=== PATIENT | female | born 1955 | race Caucasian/White ===

== ENCOUNTER 2017-01-04 10:23 | Outpatient (CLI) | payer BC ==
--- NOTE | 2017-01-04 13:34 | RAD ---
CHEST 2 VIEWS: Date: 01/04/17 HISTORY: Dyspnea. COMPARISON: Chest 2 views dated 08/12/14. FINDINGS: Linear opacity in right upper lobe appears mildly increased from the comparison examination. There is a CT angiogram of the chest from 05/03/15, which does not show an intraparenchymal abnormality; ther efore, this may be an artifactual density projecting over the right upper lobe. Lungs without progressive consolidation, pneumothorax, or effusion. There is prominent mediastinal fa t. IMPRESSION: No acute intrathoracic abnormality. POS: [facility]
== END 2017-01-04 10:24 | disposition home or self-care (01) ==
LOC: RAD 10:23
PROVIDERS: ATTEND Internal Medicine Pulmonary Disease
DX: R06.00 Dyspnea, unspecified (principal)
CPT/HCPCS: 71020

== ENCOUNTER 2017-12-10 10:43 | Outpatient (CLI) | payer BC ==
--- NOTE | 2017-12-10 11:52 | RAD ---
TWO VIEWS RIGHT HIP: Date: 12-10-17 Comparison: None. History: Pain and radiculopathy. FINDINGS: There is moderate superior joint space narrowing. There is mild lateral acetabular osteophyte formati on. There is a round subchondral lucency measuring 7 mm within the lateral articular aspect of the femora l head which may represent a subchondral geoid on the basis of degenerative change. No acute osseous abnormality is noted. IMPRESSION: Degenerative joint disease with no displaced fracture or evidence of dislocation. POS: [facility]
--- NOTE | 2017-12-10 13:25 | MRI ---
MRI LUMBAR SPINE: Date: 12/10/17 COMPARISON: 02/28/06. HISTORY: Lumbar radiculopathy, low back pain with right hip and right groin pain. TECHNIQUE: Multiplanar, multisequence MR imaging of the lumbar spine provided without contrast. FINDINGS: The sagittal STIR imaging demonstrates no focal area of osseous marrow edema. Benign hemangioma noted at the T11 level. No anterolisthesis or retrolisthesis seen. On the basis of five lumbar-type verteb ral bodies, conus medullaris terminates at T12-L1. T12-L1: There is mild bilateral facet hypertrophy. There is disc desiccation. No significant central canal or neural foraminal stenosis. L1-2: Mild bilateral facet hypertrophy. Disc desiccation noted. No significant central canal or neural fora jaylene stenosis. L2-3: Disc desiccation noted. Mild bilateral facet hypertrophy. No significant central canal or neural fora jaylene stenosis. L3-4: There is disc desiccation. There is no significant central canal or neural foraminal stenosis. L4-5: Mild bilateral facet hypertrophy. Disc desiccation. No significant central canal or neural foraminal stenosis. L5-S1: Mild facet hypertrophy bilaterally. Mild right neural foraminal stenosis. No significant central sasha l or left neural foraminal stenosis. Imaged retroperitoneal structures appear grossly unremarkable. IMPRESSION: Mild degenerative changes within the lumbar spine as detailed above. POS: [facility]
== END 2017-12-10 10:44 | disposition home or self-care (01) ==
LOC: BICMRI 10:43
PROVIDERS: ATTEND Neurological Surgery
DX: M47.26 Other spondylosis with radiculopathy, lumbar region (principal); M16.11 Unilateral primary osteoarthritis, right hip
CPT/HCPCS: 72148

== ENCOUNTER 2018-04-10 10:30 | Outpatient (CLI) | payer BC, MEDICARE ==
--- NOTE | 2018-04-10 12:30 | BD ---
BONE DENSITOMETRY USING DEXA: HISTORY: Postmenopausal screening for osteoporosis. LUMBAR SPINE BMD (g/cm2) T-SCORE Z-SCORE L1 1.054 0.6 2.1 L2 1.184 1.4 3.2 L3 1.077 -0.1 1.8 L4 0.981 -0.7 1.2 TOTAL 1.074 0.2 2.0 NECK 0.717 -1.2 0.3 TOTAL 1.019 0.6 1.9 IMPRESSION: Osteopenia. POS: [facility]
== END 2018-04-10 10:31 | disposition home or self-care (01) ==
LOC: BICMAMMO 10:30
PROVIDERS: ATTEND Internal Medicine
DX: Z12.31 Encounter for screening mammogram for malignant neoplasm of breast (principal); Z13.820 Encounter for screening for osteoporosis; Z78.0 Asymptomatic menopausal state; M85.859 Other specified disorders of bone density and structure, unspecified thigh
CPT/HCPCS: 77063; 77067; 77080

== ENCOUNTER 2018-05-17 11:53 | Outpatient (CLI) | payer MEDICARE, BC ==
--- NOTE | 2018-05-17 13:49 | RAD ---
FOUR VIEWS LUMBAR SPINE INCLUDING FLEXION AND EXTENSION VIEWS: DATE: 05/17/2018. 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 The patient states groin pain. COMPARISON: None available. FINDINGS: There are 5 [id number] lumbar-type vertebral bodies. There is right convex rotoscoliosis of the lumbar spine centered at the L2-3 level. There are scattered osteophytes within the lumbar spine. Schmorl's nodes are seen within the superior and inferior end plates of the L2 vertebral body. There is mild narrowing of the L5-S1 intervertebral disk space. The vertebral body heights are within nor mal limits. No fracture or subluxation is seen, and there is no abnormal translational motion seen b etween the flexion and extension views lumbar spine. IMPRESSION: 1. Degenerative changes of the lumbar spine with right convex scoliosis. 2. No fracture or subluxation visualized. POS: [facility]
== END 2018-05-17 11:54 | disposition home or self-care (01) ==
LOC: BICRAD 11:53
PROVIDERS: ATTEND Specialist
DX: M51.17 Intervertebral disc disorders with radiculopathy, lumbosacral region (principal); M47.816 Spondylosis without myelopathy or radiculopathy, lumbar region; M41.86 Other forms of scoliosis, lumbar region
CPT/HCPCS: 72110

== ENCOUNTER 2019-04-24 12:24 | Outpatient (CLI) | payer MEDICARE, BC ==
--- NOTE | 2019-04-24 13:13 | MMO ---
Bilateral MAMMO Bilat Screen [facility]. CLINICAL HISTORY: Patient is 64 years old and is seen for screening. The patient has no family history of breast cancer. The patient has no personal history of cancer. VIEWS: The views performed were: bilateral craniocaudal with tomosynthesis and bilateral mediolateral oblique with tomosynthesis. FILMS COMPARED: The present examination has been compared to prior imaging studies performed at [facility] on 07/20/2015, 01/12/2017 and 04/10/2018, and at [facility] on 02/16/2014. This study has been interpreted with the assistance of computer-aided detection. MAMMOGRAM FINDINGS: There are scattered fibroglandular densities. There are stable benign appearing calcifications seen in both breasts. There are also vascular calcifications. There are no suspicious masses, suspicious calcifications, or new areas of architectural distortion. IMPRESSION: THERE IS NO MAMMOGRAPHIC EVIDENCE OF MALIGNANCY. A ROUTINE FOLLOW-UP MAMMOGRAM IN 1 YEAR IS RECOMMENDED. THE RESULTS OF THIS EXAM WERE SENT TO THE PATIENT. ACR BI-RADS Category 2 - Benign finding MAMMOGRAPHY NOTE: 1. A negative mammogram report should not delay a biopsy if a dominant of clinically suspicious mass is present. 2. Approximately 10% to 15% of breast cancers are not detected by mammography. 3. Adenosis and dense breasts may obscure an underlying neoplasm. Reported by: EDGAR GUPTA MD Electonically Signed: [id number]
== END 2019-04-24 12:25 | disposition home or self-care (01) ==
LOC: BICMAMMO 12:24
PROVIDERS: ATTEND Internal Medicine
DX: Z12.31 Encounter for screening mammogram for malignant neoplasm of breast (principal)
CPT/HCPCS: 77063; 77067

== ENCOUNTER 2020-04-27 09:01 | Outpatient (CLI) | payer MEDICARE, BC ==
--- NOTE | 2020-04-27 09:36 | ULT ---
Ultrasound of theabdomen: 04/27/2020 COMPARISON:None available HISTORY:Hemochromatosis and gastroesophageal reflux disease TECHNIQUE: Multiplanar grayscale sonographic imaging of theabdomen provided FINDINGS:The visualized abdominal aorta and IVC unremarkable. Imaged portions of the pancreas appear within normal limits. The tail is partially obscured by bowel gas. No focal liver lesion or intrahepatic biliary dilatation is seen. The hepatic parenchyma is echogenic suggesting hepatocellular disease. No gallstones or gallbladder sludge. No pericholecystic fluid. The common bile duct measures 5 mm, within normal limits. Right kidney measures 10.2 cm in craniocaudal dimension and demonstrates no stone, hydronephrosis, or mass. Left kidney measures 10.5 cm craniocaudal dimension and demonstrates no stone, hydronephrosis, or mass. Spleen measures up to 12.6 cm, within normal limits. IMPRESSION: Increased echogenicity of the hepatic parenchyma as detailed above. No acute findings.
== END 2020-04-27 09:02 | disposition home or self-care (01) ==
LOC: BICULT 09:01
PROVIDERS: ATTEND Internal Medicine Gastroenterology
DX: K21.9 Gastro-esophageal reflux disease without esophagitis (principal); E83.119 Hemochromatosis, unspecified; K76.89 Other specified diseases of liver
CPT/HCPCS: 93975

== ENCOUNTER 2020-04-27 09:27 | Outpatient (CLI) | payer MEDICARE, BC ==
--- NOTE | 2020-04-27 10:27 | MMO ---
Bilateral MAMMO Bilat Screen [facility]. CLINICAL HISTORY: Patient is 65 years old and is seen for screening. The patient has no family history of breast cancer. The patient has no personal history of cancer. VIEWS: The views performed were: bilateral craniocaudal with tomosynthesis and bilateral mediolateral oblique with tomosynthesis. FILMS COMPARED: The present examination has been compared to prior imaging studies performed at [facility] on 07/20/2015, 01/12/2017, 04/10/2018 and 04/24/2019. This study has been interpreted with the assistance of computer-aided detection. MAMMOGRAM FINDINGS: There are scattered fibroglandular densities. There are vascular calcifications seen in both breasts. There are no suspicious masses, suspicious calcifications, or new areas of architectural distortion. IMPRESSION: THERE IS NO MAMMOGRAPHIC EVIDENCE OF MALIGNANCY. A ROUTINE FOLLOW-UP MAMMOGRAM IN 1 YEAR IS RECOMMENDED. THE RESULTS OF THIS EXAM WERE SENT TO THE PATIENT. ACR BI-RADS Category 2 - Benign finding MAMMOGRAPHY NOTE: 1. A negative mammogram report should not delay a biopsy if a dominant of clinically suspicious mass is present. 2. Approximately 10% to 15% of breast cancers are not detected by mammography. 3. Adenosis and dense breasts may obscure an underlying neoplasm. Reported by: DANA VILLANUEVA MD Electonically Signed: [id number]
== END 2020-04-27 09:28 | disposition home or self-care (01) ==
LOC: BICMAMMO 09:27
PROVIDERS: ATTEND Internal Medicine
DX: Z12.31 Encounter for screening mammogram for malignant neoplasm of breast (principal)
CPT/HCPCS: 77063; 77067

== ENCOUNTER 2022-02-15 08:55 | Outpatient (CLI) | payer MEDICARE, BC | END 2022-02-15 08:56 | disposition home or self-care (01) | LOC: BICMAMMO 08:55 | PROVIDERS: ATTEND Internal Medicine | DX: Z12.31 Encounter for screening mammogram for malignant neoplasm of breast (principal); Z85.828 Personal history of other malignant neoplasm of skin | CPT/HCPCS: 77063; 77067 ==

== ENCOUNTER 2024-11-10 10:18 | Observation (INO) | payer MEDICARE ==
[2024-11-10 10:59] LABS: #Basophils 0.04 10x3/uL (0.0-0.2); #Eosinophils 0.10 10x3/uL (0.0-0.7); #Monocytes 0.50 10x3/uL (0.11-0.59); #Neutrophils 5.73 10x3/uL (1.40-6.50); %Basophils 0.5 % (0.0-1.0); %Eosinophils 1.3 % (0.0-10.0); %Lymphocytes 19.9 % (21.0-51.0); %Monocytes 6.3 % (0.0-10.0); %Neutrophils 71.7 % (42.0-75.0); Hematocrit 40.2 % (36.0-47.0); Hemoglobin 13.7 g/dL (12.0-16.0); Mean Corpuscular Hemoglobin 30.0 pg (27.0-31.0); Mean Corpuscular Volume 88.2 fL (78.0-98.0); Platelet Count 279 10x3/uL (130-400); Red Blood Cell (RBC) Count 4.56 mill/uL (4.20-5.40); White Blood Cell (WBC) Count 7.98 10x3/uL (4.8-10.8)
[2024-11-10 11:25] LABS: ALT (SGPT) 20 U/L (Less than 34); AST (SGOT) 27 U/L (11-34); Albumin 3.7 g/dL (3.1-4.5); Alkaline Phosphatase 99 U/L (40-110); Anion Gap 12 mmol/L (10-20); BUN (Urea Nitrogen) 11 mg/dL (9.8-20.1); Bilirubin, Total 0.4 mg/dL (0.3-1.2); Calc. Creatinine Clearance 129 mL/min (70-130); Calcium 9.5 mg/dL (7.8-10.44); Carbon Dioxide 24 mmol/L (23-31); Chloride 103 mmol/L (98-107); Globulin 3.7 g/dL (2.4-3.5); Glucose 101 mg/dL (83-110); Potassium 4.3 mmol/L (3.5-5.1); Sodium 135 mmol/L (136-145)
[2024-11-10] MEDS ORDERED: Heparin 10,000 UNITS/ 10 ML VIAL ONE ×2 (11:48→13:09)
[2024-11-10] MEDS ORDERED: EPINEPHrine 1 MG/10 ML Abboject SYRINGE ONE (11:48)
[2024-11-10] MEDS ORDERED: Adenosine 6 mg (2 mL) VIAL ONE (11:48)
[2024-11-10] MEDS ORDERED: Lidocaine 1% (PF) 30 ML VIAL ONE (11:49)
[2024-11-10] MEDS ORDERED: Nitroglycerin 50 MG/250 ML BOT 250 ML ONE (11:49)
[2024-11-10] MEDS ORDERED: PHENYLEPHRINE-NS 100 MCG/ML 10 ML SYRINGE ONE (11:49)
[2024-11-10] MEDS ORDERED: Iopamidol 370 76% 100 ML VIAL ONE (14:37)
[2024-11-10] MEDS ORDERED: TICAGRELOR 90 MG TABLET ONE (15:34)
[2024-11-10 18:04] VITALS: BMI 39.2
[2024-11-10] MEDS ORDERED: Nitroglycerin 0.4 MG TAB (25 Tab Bottle) SL PRN (19:00)
[2024-11-10] MEDS: Rosuvastatin 20 MG TAB PO SCH (22:12)
[2024-11-10] MEDS: Sertraline 100 MG TAB PO SCH ×2 (22:49→22:51)
[2024-11-10] MEDS: ALPRAZolam 0.5 MG TAB PO PRN (22:49)
[2024-11-10] MEDS ORDERED: Acetaminophen 500 MG TAB PO PRN (23:36)
[2024-11-11] MEDS: Ibuprofen 200 MG TAB PO PRN (00:06)
[2024-11-11 08:22] VITALS: TEMP 98.4
[2024-11-11] MEDS: Ezetimibe 10 MG TAB PO SCH (08:28)
[2024-11-11] MEDS: Aspirin Chewable 81 MG TAB PO SCH (08:28)
[2024-11-11] MEDS: Rosuvastatin 20 MG TAB PO SCH (08:29)
[2024-11-11] MEDS ORDERED: TICAGRELOR 90 MG TABLET PO SCH (09:00)
[2024-11-11] MEDS ORDERED: PNEUMOC 20-VAL CONJ-DIP CRM/PF 0.5 ML SYRINGE IM ONE (09:00)
[2024-11-11] MEDS ORDERED: Sertraline 100 MG TAB PO SCH (09:00)
[2024-11-11 12:18] VITALS: BP 153/67
== END 2024-11-11 12:39 | disposition home or self-care (01) ==
LOC: CCL 10:18 → 2NO 16:19
PROVIDERS: ADMIT Internal Medicine Cardiovascular Disease; ATTEND Internal Medicine Cardiovascular Disease
PROC: 4A023N7 Measurement of Cardiac Sampling and Pressure, Left Heart, Percutaneous Approach (ICD-10-PCS; principal; 2024-11-10)
DX: I25.10 Atherosclerotic heart disease of native coronary artery without angina pectoris (principal); E78.5 Hyperlipidemia, unspecified; I10 Essential (primary) hypertension; E83.119 Hemochromatosis, unspecified; F17.200 Nicotine dependence, unspecified, uncomplicated; E78.00 Pure hypercholesterolemia, unspecified; E66.01 Morbid (severe) obesity due to excess calories; Z68.39 Body mass index [BMI] 39.0-39.9, adult; Z79.82 Long term (current) use of aspirin; Z79.899 Other long term (current) drug therapy; Z91.040 Latex allergy status; Z88.2 Allergy status to sulfonamides
CPT/HCPCS: 80053; 85025; 85347 ×2; 93005; 93458; C1725 ×2; C1769 ×2; C1874 ×2; C1887; C1894; C9600; J1644; J2250; J7030; Q9967; 92928; 93010; 99152; 99153; J0153; J0165; J0461

== ENCOUNTER 2025-01-08 08:33 | Outpatient (CLI) | payer MEDICARE | END 2025-01-08 08:34 | disposition home or self-care (01) | LOC: CT 08:33 | PROVIDERS: ATTEND Internal Medicine Cardiovascular Disease | DX: F17.201 Nicotine dependence, unspecified, in remission (principal) | CPT/HCPCS: 71250 ==